=== PATIENT | female | born 1960 | race Caucasian/White ===

== ENCOUNTER → 2016-08-12 | Outpatient (CLI) | payer OTHER ==
[~2016-08-12] MED LIST: ANTIVERT25 MG PO; ASPIRIN CHILDRE81 MG PO; CILOXAN 5 ML5 ML OPH; CIPRODEX 0.3%-7.5 ML OT; CIPROFLOXACIN500 MG PO; CLARITIN10 MG PO; CORDROL20 MG PO; DARVOCET N 1001 TAB PO; DAYPRO600 M1 PO; DONNATAL1 TAB PO; EES400 MG PO; ENDOMETRIN100 MG VG; MOBIC15 MG PO; PYRIDIUM100 MG PO; QVAR0.08 MG/AC INH; SINGULAIR10 MG PO; SINGULAR PO; TRAMADOL HCL50 MG PO; VITAMIN D50000 I1; VITAMIN D50000 I3 PO; XANAX0.5 MG; XANAX1 MG PO; XOPENEX HF0.045 MG/A IH; ZANTAC150 MG PO; ZITHROMAX Z PA250 MG PO; ZOFRAN4 MG PO; ZOLOFT25 MG PO; ZOLOFT50 MG; ZOLOFT50 MG PO
== END | disposition home or self-care (01) ==
LOC: RESCLI 09:16
DX: J04.0 Acute laryngitis (principal); Z88.0 Allergy status to penicillin